=== PATIENT | female | born 1960 | race Caucasian/White ===

== ENCOUNTER 2016-08-23 05:17 | Day surgery (SDC) | payer MEDICARE, SELFPAY ==
[2016-08-20 09:38] LABS: HEMATOCRIT 39.5 % (36.0-48.0)
[2016-08-20 09:58] LABS: BUN (BLOOD UREA NITROGEN) 11 MG/DL (6-23); CALCIUM, SERUM 9.4 MG/DL (8.5-10.4); CHLORIDE, SERUM 104 MMOL/L (96-112); CO2 (CARBON DIOXIDE) 29 MMOL/L (24-34); CREATININE 0.72 MG/DL (0.55-1.02); GFR AFRICAN AMERICAN 108 ML/MIN (>=60); GFR NON AFRICAN AMERICAN 93 ML/MIN (>=60); GLUCOSE, SERUM 84 MG/DL (60-99); POTASSIUM, SERUM 5.2 MMOL/L (3.5-5.3); SODIUM, SERUM 141 MMOL/L (135-148)
--- NOTE | ~2016-08-23 | OP ---
Record Of Operation [facility] [address] [place]. [address] NAME: CARLOS ENRIQUE SANTO : 56 STATUS : [facility]#: [id number] AGE: 55 ADM/REG DATE : 08/23/16 MR#: [id number] REPORT SERV DATE: 08/24/16 DICTATED BY: MARCK LILLY II DATE: 08/24/16 REPORT STATUS : Draft TRANSCRIBED BY: MODPino DATE: 08/24/16 DATE OF PROCEDURE: 08/23/2016 PREOPERATIVE DIAGNOSES: 1. Mild L4-L5 spondylolisthesis without instability. 2. Stenosis, L4-L5. 3. Hypertrophic facets, L4-L5. 4. Left lower extremity radiculopathy. POSTOPERATIVE DIAGNOSES: 1. Mild L4-L5 spondylolisthesis without instability. 2. Stenosis, L4-L5. 3. Hypertrophic facets, L4-L5. 4. Left lower extremity radiculopathy. PROCEDURE: 1. Lumbar laminectomy, L4-L5. 2. Use of the microscope and stereotactic spinal imaging. SURGEON: Marck Lilly M.D. FLUIDS: 1 L lactated Ringer's. ESTIMATED BLOOD LOSS: 15 mL. DRAINS: None. COMPLICATIONS: None. ANTIBIOTICS: Preoperatively. PREOPERATIVE HISTORY: This is a very friendly female with very large hypertrophic facets with a very minimal spondylolisthesis without instability. We discussed the pros and cons of surgery. We discussed the simple laminectomy. I discussed with her that my suspicion is she will develop instability at some point and may very well require a fusion. We discussed the rates of success and failure regarding the laminectomy to help with her leg pain. We discussed the risks, and she wished to proceed. DESCRIPTION OF PROCEDURE: After informed consent was obtained, the patient was brought to the operating room at her request and general anesthesia was achieved. She was placed in the prone position, and the back was prepped and draped in a sterile fashion. The stereotactic spinal pin was placed, and the intraoperative CT scan was completed. Stereotactic guidance was then used throughout the remainder of the case. Next, the minimally invasive incision was performed on the left and the minimally invasive quadrant retractor was placed, and the microscope was brought into place. Under microscopic Record Of Operation [facility] [address] [place]. [address] NAME: CARLOS ENRIQUE SANTO : 56 STATUS : [facility] PAT#: [id number] AGE: 55 ADM/REG DATE : 08/23/16 MR#: [id number] REPORT SERV DATE: 08/24/16 DICTATED BY: MARCK LILLY II DATE: 08/24/16 REPORT STATUS : Draft TRANSCRIBED BY: VIGNESH DATE: 08/24/16 visualization, the spinolaminar junction was taken down. The hypertrophic ligamentum flavum was removed. The dura was then well decompressed in both recesses. At this point, portions of the facet were now removed. We were careful not to over-resect the joint. Again, it was a significant amount of gapping within the facet itself. The inferior facet was now attended to and portions of it were removed to decompress the L5 nerve root. At this point, the L4 nerve root was evaluated and no significant compression was noted on it in the foraminal zone. Following adequate decompression of the canal and the L5 nerve roots, the area was now irrigated, hemostasis was achieved, standard closure was performed, and the patient was now extubated and transferred to PACU in stable condition. MONIQUE/VIGNESH Marck Lilly II, M.D. / [id number] CC: Leanne Spivey II, M.D.
[~2016-08-23 05:17] MED LIST: ACET500CAP PO; D100 PO; GOODY POWDER PO; LISINOPRIL40 MG PO; NEUR300 PO; PRILOSEC40 MG PO; V5 PO
== END 2016-08-23 16:17 | disposition home or self-care (01) ==
LOC: SDC 05:17
PROVIDERS: Orthopaedic Surgery
PROC: 01NB0ZZ Release Lumbar Nerve, Open Approach (ICD-10-PCS; 2016-08-23)
PROC: 0SB20ZZ Excision of Lumbar Vertebral Disc, Open Approach (ICD-10-PCS; principal; 2016-08-23 06:45)
DX: M43.16 Spondylolisthesis, lumbar region (principal); M48.06 Spinal stenosis, lumbar region; M54.16 Radiculopathy, lumbar region; K21.9 Gastro-esophageal reflux disease without esophagitis; J45.909 Unspecified asthma, uncomplicated; I10 Essential (primary) hypertension; M19.90 Unspecified osteoarthritis, unspecified site; J44.9 Chronic obstructive pulmonary disease, unspecified; Z98.51 Tubal ligation status
CPT/HCPCS: 80048; 85014; 85018; 88304; 88311; 93005; 94640; A9270-GY; J0690; J1030; J1170; J1885; J2175; J2250; J2405; J2550; J2710; J3010